=== PATIENT | male | born 1990 | race Caucasian/White ===

== ENCOUNTER 2018-07-26 18:39 | Emergency (ER) | payer OTHER, SELFPAY ==
[2018-07-26 18:41] VITALS: BP 161/87; PULSE 70; RESP 18; TEMP 35.9; O2SAT 98; BMI 31.6
--- NOTE | 2018-07-26 19:39 | CT_ITS ---
CT of the left hip indication: Posttraumatic pain TECHNIQUE: CT of the left hip was performed in the axial projection without contrast followed by sagittal and coronal reconstructions. Radiographic technique was optimized to limit patient radiation dose. DLP was 973.54 Findings No evidence for acute fracture or dislocation of the left hip. There is a very subtle oblique fracture of the mid left inferior pubis with minimal separation of fracture fragments. There appears to be mild effacement of the fat at the insertion of the hamstrings IMPRESSION:. Minimally displaced fracture of the left inferior pubis Electronically Signed: Geovanni Lundy MD at 20:22 EDT , Service support , CT/Extremity Lower without Contra
--- NOTE | 2018-07-26 20:47 | US_ITS ---
STUDY: VENOUS DOPPLER ULTRASOUND - LEFT LOWER EXTREMITY REASON FOR EXAM: Male, 27 years old. Left leg pain and swelling. TECHNIQUE: Ultrasound evaluation of the deep vein system to include fragoso-scale imaging and compression was performed. Fragoso-scale imaging and Doppler sonographic evaluation, including duplex spectral analysis and qualitative color flow sonography, was performed. COMPARISON: None. FINDINGS: Common Femoral Vein: Normal compression, spontaneity and augmentation. Normal color Doppler. Common Femoral Vein/Greater Saphenous Junction: Normal compression, spontaneity and augmentation. Normal color Doppler. Deep Femoral Vein: Normal compression, spontaneity and augmentation. Normal color Doppler. Femoral Proximal: Normal compression, spontaneity and augmentation. Normal color Doppler. Femoral Middle: Normal compression, spontaneity and augmentation. Normal color Doppler. Femoral Distal: Normal compression, spontaneity and augmentation. Normal color Doppler. Popliteal Vein: Normal compression, spontaneity and augmentation. Normal color Doppler. Posterior Tibial Vein: Normal compression, spontaneity and augmentation. Normal color Doppler. Peroneal Vein: Normal compression, spontaneity and augmentation. Normal color Doppler. US/Venous Duplex Imag/Limited/Uni IMPRESSION: Normal venous Doppler ultrasound of the lower extremity. Electronically Signed: Narinder Coker MD at 13:36 EDT Tel [phone], Service support ,
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
--- NOTE | 2018-07-26 21:55 | ED.DEP ---
ED Disposition - Plan for ED Patient: Disposition: Home or Assisted Living Chief Complaint: Lower Extremity Injury Instructions: ED Fx Pelvis Prescriptions: Hydrocodone/Acetaminophen [[place] 5-325 Tablet] 1 - 2 each PO 4X/DAY PRN PRN 5 Days #20 tablet PRN Reason: Pain [facility]errals: [facility] [Primary Care Provider] - 5-7 Days
[2018-07-26] MEDS: HYDROcodone Bitartrate/Apap 5/325 Tablet PO ×2 (22:05→22:06)
[2018-07-26 22:07] VITALS: BP 138/76; PULSE 79; O2SAT 98
== END 2018-07-26 22:08 | disposition home or self-care (01) ==
PROVIDERS: Emergency Provider Emergency Medicine
DX: S32.592A Other specified fracture of left pubis, initial encounter for closed fracture (principal); M79.605 Pain in left leg; V47.5XXA Car driver injured in collision with fixed or stationary object in traffic accident, initial encounter; Y93.9 Activity, unspecified; Y92.9 Unspecified place or not applicable; Y99.9 Unspecified external cause status
CPT/HCPCS: 73700; 93971; 99283; A4216